=== PATIENT | male | born 1975 | race Two or more races ===

== ENCOUNTER 2019-03-31 17:09 | Emergency (ER) | payer SELFPAY ==
[~2019-03-31] VITALS: Ht 188 cm; Wt 105.0 kg
[2019-03-31 19:15] VITALS: BP 130/75
== END 2019-03-31 19:56 | disposition home or self-care (01) ==
LOC: ED 19:50
DX: E11.65 Type 2 diabetes mellitus with hyperglycemia (principal)
CPT/HCPCS: 36415; 80048; 82010; 82040; 82803; 82962; 85025; 96360; 96372; 99283; J7030